=== PATIENT | female | born 1995 | race Caucasian/White ===

== ENCOUNTER 2019-02-10 08:15 | Emergency (ER) | payer MEDICAID ==
[2019-02-10] MEDS ORDERED: 0.9 % SODIUM CHLORIDE 1000ML 1,000 ML IV ONE (08:22)
[2019-02-10] MEDS ORDERED: ONDANSETRON HCL IV 4 MG/2 ML VIAL IVP ONE (08:22)
--- NOTE | 2019-02-10 08:22 | Emergency Department Record ---
History of Present Illness - General Stated complaint: VOMITING, Time Seen by Provider: 02/10/19 08:16 Source: Patient, Family Mode of Arrival: Ambulatory Limitations: No limitations - History of Present Illness Initial comments: 23 yo female presents with nausea and vomiting. She reports she is . She reports she is 9 weeks . She has had some nausea with vomiting throughout. This is her second . She had a go 8 weeks about 4 years ago. No vaginal bleeding. No vaginal discharge. She does have some reflux in the mornings. She tried a Compazine suppository yesterday. She has an OB at [facility]. MD complaint: Nausea, Vomiting -: Week(s) Description of Vomiting: Watery Description of Diarrhea: Water Location: Other Radiation: Other Severity: Mild Quality: Other Consistency: Intermittent Improves with: None Worsens with: Eating Context: Other () Associated Symptoms: Nausea/vomiting - Related Data Home Medications Medication Instructions Recorded Confirmed Last Taken Ondansetron HCl [Zofran] 4 mg PO ASDIR 02/10/19 02/10/19 02/09/19 Prochlorperazine [Compazine] 25 mg RC ASDIR 02/10/19 02/10/19 02/09/19 Previous Rx's Medication Instructions Recorded Metronidazole [Flagyl] 500 mg PO BID #14 tablet 02/10/19 Ondansetron [Zofran Odt] 4 mg PO Q8H #15 tab.rapdis 02/10/19 Allergies Allergy/AdvReac Type Severity Reaction Status Date / Time acetaminophen [From Tylenol] AdvReac pt states Verified 02/10/19 08:20 she is sensitive Review of Systems Constitutional: Denies: Chills, Fever, Malaise, Weakness Eyes: Denies: Eye discharge, Vision change ENT: Denies: Congestion, Throat pain Respiratory: Denies: Cough, Dyspnea, Wheezes Cardiovascular: Denies: Chest pain, Palpitations, Syncope Endocrine: Denies: Fatigue, Polydipsia, Polyuria Gastrointestinal: Reports: Nausea, Vomiting. Denies: Diarrhea Genitourinary: Reports: Abnormal menses ( 9 weeks). Denies: Discharge, Dysuria, Hematuria, Incontinence, Retention, Urgency Musculoskeletal: Denies: Arthralgia, Back pain, Myalgia Skin: Denies: Bruising, Change in color, Rash Neurological: Denies: Headache, Numbness, Weakness Psychiatric: Denies: Anxiety Hematological/Lymphatic: Denies: Easy bleeding, Easy bruising Physical Exam - General General Appearance: Alert, Oriented x3, Cooperative, No acute distress Limitations: No limitations - Head Head exam: Atraumatic, Normal inspection - Eye Eye exam: Normal appearance. negative: Conjunctival injection, Scleral icterus - ENT ENT exam: Normal exam, Mucous membranes moist Ear exam: Normal external inspection Nasal Exam: Normal inspection Mouth exam: Normal external inspection Teeth exam: negative: Normal inspection (wide spread decay) Throat exam: Normal inspection - Neck Neck exam: Normal inspection - Respiratory Respiratory exam: Normal lung sounds bilaterally. negative: Respiratory distress, Rhonchi, Stridor, Wheezes - Cardiovascular Cardiovascular Exam: Regular rate, Normal rhythm, Normal heart sounds - GI/Abdominal GI/Abdominal exam: Soft, Normal bowel sounds. negative: Distended, Guarding, Re bound, Rigid, Tenderness - Rectal Rectal exam: Deferred - exam: Deferred - Extremities Extremities exam: Normal inspection. negative: Pedal edema, Tenderness - Back Back exam: Denies: CVA tenderness (R), CVA tenderness (L) - Neurological Neurological exam: Alert, Oriented X3 - Psychiatric Psychiatric exam: Normal affect, Normal mood. negative: Agitated, Anxious - Skin Skin exam: Dry, Intact, Normal color, Warm Course - Reevaluation(s) Reevaluation #1: 02/10/19 08:32 Limited Bedside US performed Single IUP noted with strong heartbeat approximately 130 02/10/19 08:35 The abdomen is very soft and non tender The vitals were reviewed. No significant abnormalities. 02/10/19 09:09 The patient is getting some relief. The plan is for 2 Liters then reassess. 02/10/19 09:49 The patient now has epigastric pain that just started This is the pain that she wakes up with every morning Zantac and GI cocktail ordered as well as upper abdominal US. NO lower abdominal pain 02/10/19 11:03 UA with trichomonas The patient was informed of the findings, treatment and need to have partner treated as well. She has an appointment tomorrow with her OB to discuss this ER visit and results She was informed a culture of the urine is pending as well for additional tests 02/10/19 11:10 US demonstrated sludge in the GB. No other acute findings. The patient was informed. No stones, no wall thickening. No other findings on lab to suggest acute cholecystitis. The pain is gone at this time. She will discuss this with at her appointment tomorrow as well. Medical Decision Making - Lab Data Result diagrams: 02/10/19 08:30 02/10/19 08:30 Disposition Disposition: Discharge Clinical Impression: Hyperemesis gravidarum, Trichomonas vaginalis infection Disposition: Home, Self-Care Condition: (1) Good Instructions: Hyperemesis Gravidarum (ED), Trichomoniasis (ED) Additional Instructions: Call your doctor for the next available follow up appointment Review this ER visit and the tests performed with your family doctor Return to the ER for a recheck if worse, any new concerns or questions Take the prescriptions provided as directed No unprotected sex for one week after treatment Inform your sexual partner of the need for treatment as well You Ultrasound did show sludge (no stones or gall bladder wall thickening) in the gall bladder. Discuss this with your doctor tomorrow as well. Prescriptions: Metronidazole [Flagyl] 500 mg PO BID #14 tablet Ondansetron [Zofran Odt] 4 mg PO Q8H #15 tab.rapdis Forms: Patient Portal Access Time of Disposition: 11:08 Quality - Quality Measures Quality Measures: N/A - Blood Pressure Screening Does Patient Have Any of the Following: No Blood Pressure Classification: Pre-Hypertensive BP Reading Systolic Measurement: 119 Diastolic Measurement: 84 Screening for High Blood Pressure: < Pre-Hypertensive BP, F/U Documented > [G8950] Pre-Hypertensive Follow-up Interventions: Referral to alternative/primary care provider.
[2019-02-10 08:37] LABS: ABSOLUTE NEUTROPHIL COUNT 9.14; BASO % 0.1 % (0-6); EOS % 0.7 % (0-6); HEMATOCRIT 44.2 % (35.0-47.0); HEMOGLOBIN 15.5 gm/dl (11.6-16.0); LYMPH % 12.9 % (16-45); MEAN CELL VOLUME 84.5 fl (81-97); MEAN CORPUSCULAR HEMOGLOBIN 29.6 pg (27-33); MEAN CORPUSCULAR HGB CONC 35.1 g/dl (32-36); MEAN PLATELET VOLUME 9.8 fl (7.4-10.4); MONO % 6.3 % (0-9); PLATELET COUNT 329 K/uL (130-400); RED BLOOD COUNT 5.23 M/uL (3.80-5.40); RED CELL DISTRIBUTION WIDTH 13.6 % (11.5-14.5); WHITE BLOOD COUNT W/O DIFF 11.4 K/uL (4.2-12.2)
[2019-02-10 09:02] LABS: BLOOD UREA NITROGEN 7 mg/dL (6-20); CREATININE 0.4 mg/dL (0.5-0.9); EST GLOMERULAR FILTRATION RATE > 60 mL/min
[2019-02-10 09:05] LABS: GLUCOSE,RANDOM 97 mg/dL (74-109)
[2019-02-10] MEDS ORDERED: 0.9 % SODIUM CHLORIDE 1,000 ML BAG IV ONE (09:07)
[2019-02-10 09:27] LABS: TOTAL B-hCG 69190 mIU/mL
[2019-02-10] MEDS ORDERED: RANITIDINE HCL 50 MG in 0.9 % SODIUM CHLORIDE 100ML 100 ML IVPB ONE (09:46)
[2019-02-10] MEDS ORDERED: MAGNESIUM HYDROXIDE/AL HYDROX 30 ML, LIDOCAINE VISC 2% 15ML 15 ML PO ONE ×2 (09:48)
[2019-02-10 10:43] LABS: URINE BILIRUBIN SMALL (NEGATIVE); URINE BLOOD TRACE-I (NEGATIVE); URINE COLOR YELLOW; URINE GLUCOSE (UA) NEGATIVE (NEGATIVE); URINE LEUKOCYTE ESTERASE SMALL (NEGATIVE); URINE NITRITE NEGATIVE (NEGATIVE); URINE PROTEIN TRACE (NEGATIVE)
[2019-02-10 10:53] LABS: URINE APPEARANCE CLOUDY; URINE KETONE 80 mg/dL (NEGATIVE); URINE RBC 0 - 2 (NONE SEEN)
[2019-02-10 10:54] LABS: URINE BACTERIA 2+; URINE EPITHELIAL CELLS 36 - 50 (FEW); URINE MUCUS MODERATE; URINE TRICHOMONAS FEW
--- NOTE | 2019-02-12 09:05 | ULTRASOUND REPORT ---
EXAM: ULTRASOUND OF THE ABDOMEN, COMPLETE HISTORY: EPIGASTRIC ABDOMINAL PAIN. PATIENT IS NINE WEEKS . TECHNIQUE: Routine ultrasound examination of the abdomen was performed. Comparison: None. FINDINGS: The pancreatic tail is obscured by overlying bowel gas. The remainder of the pancreas is visualized and normal in appearance. The abdominal aorta and inferior vena cava are normal in appearance. The liver appears somewhat coarsened in echotexture. This may just relate to increased image noise due to body habitus though mild steatosis would be difficult to exclude. No hepatic mass. No intra nor extrahepatic biliary ductal dilatation with the common hepatic duct measuring 1 mm. The gallbladder is sludge filled. No gross gallbladder wall thickening nor pericholecystic fluid. The director talent reports a positive sonographic Sommer's sign. The spleen is near the upper limits of normal in size measuring 12 x 4 x 10 cm. No focal hepatic lesion. Screening evaluation of the kidneys does not demonstrate hydronephrosis or mass with each kidney measuring 12 cm in diameter. IMPRESSION: 1. THE GALLBLADDER IS SLUDGE FILLED WITHOUT GROSS GALLBLADDER WALL THICKENING OR PERICHOLECYSTIC FLUID. THE TUBE FITTER DOES REPORT A POSITIVE SONOGRAPHIC SOMMER'S SIGN. NO BILIARY DUCTAL DILATATION. 2. THE LIVER APPEARS SOMEWHAT HETEROGENEOUS LIKELY DUE TO BODY HABITUS/ARTIFACT RATHER THAN STEATOSIS. 3. BORDERLINE SPLENOMEGALY. JOB NUMBER: [id number] [facility]
== END 2019-02-10 11:26 | disposition home or self-care (01) ==
LOC: ER 08:15
DX: O21.0 Mild hyperemesis gravidarum (principal); A59.01 Trichomonal vulvovaginitis; Z3A.09 9 weeks gestation of pregnancy
CPT/HCPCS: 76700; 80048; 81001; 84702; 85025; 96361; 96365; 96375; 99284; J2405; J2780; J7030